=== PATIENT | female | born 1965 | race Caucasian/White ===

== ENCOUNTER 2016-09-10 12:34 | Day surgery (SDC) | payer SELFPAY ==
[~2016-09-10] VITALS: Ht 162.6 cm; Wt 74.8 kg
[~2016-09-10 12:34] MED LIST: 0.9% Sodium Chloride 1,000 ML IV SCH; KLO5T PO; NORT50CA PO; Sodium Chloride LOK Flush 10 mL Syringe IV PRN; fentaNYL-PF 50 mCg/mL 2 mL Inj IVPUSH PRN
[2016-09-10] MEDS ORDERED: fentaNYL-PF 50 mCg/mL 2 mL Inj IVPUSH ONE (12:35)
[2016-09-10 13:00] VITALS: BP 146/96; PULSE 103; RESP 14; O2SAT 97
[2016-09-10 13:49] VITALS: BP 100/78; PULSE 95; RESP 14; O2SAT 97
[2016-09-10 13:59] VITALS: BP 107/72; PULSE 94; RESP 16; O2SAT 97
[2016-09-10 14:01] VITALS: BP 120/80; PULSE 98; RESP 14; O2SAT 98
--- NOTE | 2016-09-11 07:34 | ENDO ---
[address] [address] ENDOSCOPY PROCEDURE PATIENT: ROYAL HASSAN : 1965 MR#: [id number] ADMIT: 09/10/2016 JOB ID: [id number] DATE OF SERVICE: 09/10/2016 TYPE OF OPERATION: Colonoscopy with biopsy. PREOPERATIVE DIAGNOSIS(ES): Diarrhea. POSTOPERATIVE DIAGNOSIS (ES): 1. Extremely tortuous colon. 2. Otherwise normal colonoscopy, status post biopsy. ANESTHESIA: 1. Fentanyl 200 mcg. 2. Versed 10 mg IV administered. COMPLICATION: None. ESTIMATED BLOOD LOSS: Minimal. DESCRIPTION OF PROCEDURE: After risks and benefits explained to the patient, informed consent was obtained. After adequate anesthesia was administered, colonoscope was inserted from the rectum to the terminal ileum. Mucosa carefully examined. Prep of the patient was excellent. After the procedure was done, the scope was withdrawn and procedure terminated. FINDINGS: Upon inspection of the anus, no masses, hemorrhoids, ulcers or fissures were seen. Throughout the entire examination, the entire colon was extremely tortuous colon. No polyps or masses were seen. Random biopsies taken in the terminal ileum and random colon. Retroflexion was normal. IMPRESSIONS: 1. Tortuous colon, otherwise status post biopsy. 2. Normal colonoscopy. RECOMMENDATIONS: 1. Await pathology results. 2. Follow up with Maxine Casas in GI clinic as an outpatient.
--- NOTE | 2016-09-14 15:45 | PATH ---
SURGICAL PATHOLOGY Attending Physician:August Diamond MD CASE STATUS: Signed Out PATIENT NAME: ROYAL HASSAN PID: [id number] : 1965 DATE COLLECTED:09/10/2016 00:00 SPECIMEN: 1: Ileum, Biopsy 2: Colon, Biopsy CLINICAL HISTORY: 1). TERMINAL ILEUM BIOPSY 2). RANDOM COLON BIOPSY FINAL DIAGNOSIS: 1. Terminal Ileum Biopsy: Portions of small intestinal mucosa, consistent with terminal ileum, with no diagnostic abnormality. Negative for active inflammation, granulomas, dysplasia, and malignancy. 2. Random Colon, Biopsies: Features consistent with lymphocytic colitis, please see comment. ICD10: K52.89 NOTE: Part 2: Sections demonstrate prominent intraepithelial lymphocytosis (greater than 12 lymphocytes per 100 epithelial cells). Crypt architecture appears preserved with increased lymphocytes and plasma cells within the superficial lamina propria. There is no evidence of granulomas, crypt abscesses, dysplasia, or malignancy. These findings are consistent with lymphocytic colitis, in the appropriate clinical context. GROSS DESCRIPTION: The specimen is received in two formalin filled containers labeled with the patient's name. 1). The specimen is sublabeled " TI " and consists of 2 portions of tissue which aggregate to 0.3 x 0.2 x 0.2 CM. The specimen is entirely submitted in cassette 1A. 2). The specimen is sublabeled "random colon" and consists of multiple portions of tissue which aggregate to 0.5 x 0.4 x 0.2 CM. The specimen is entirely submitted in cassette 2A. 09/11/2016 [facility] ICD-9 CODES: CPT CODES: 1: 64897 2: 15223 Electronically Signed Out Celia Mclean MD [facility] Pathology [facility] [address], [place] [address] Technical component performed at [facility], [address] [place] [address] Ave[address], [place], [address]
== END 2016-09-10 23:59 | disposition home or self-care (01) ==
LOC: END 12:34
PROVIDERS: ATTEND Internal Medicine Gastroenterology
DX: R19.7 Diarrhea, unspecified (principal); K63.89 Other specified diseases of intestine
CPT/HCPCS: 45380; G0500; J2250; J3010; J7030